=== PATIENT | female | born 1955 | race Caucasian/White ===

== ENCOUNTER → 2019-01-27 | Outpatient (CLI) | payer OTHER ==
[~2019-01-27] MED LIST: RT-ALBUTEROL SULF 2.5 MG/3 ML PRE-MIX VIAL INH ONE
== END ==
LOC: CARD 09:00
PROVIDERS: ATTEND Family Medicine
DX: R06.89 Other abnormalities of breathing (principal)
CPT/HCPCS: 93306; 94060; 94726; 94729

== ENCOUNTER → 2019-02-10 | Outpatient (CLI) | payer OTHER ==
--- NOTE | 2019-02-10 13:50 | Diagnostic Imaging Report ---
PROCEDURE: US left lower extremity venous. TECHNIQUE: Multiple real-time grayscale images were obtained over the left lower extremity in various projections. Additional duplex Doppler and color Doppler images were also obtained. INDICATION: Left leg pain and swelling for one week. FINDINGS: There is no evidence of a left lower extremity DVT. Left lower extremity deep venous system shows normal compressibility with normal response to augmentation and Valsalva. No fluid collection or mass is seen. IMPRESSION: No evidence of left lower extremity DVT. Dictated by: Dictated on workstation # [id number]
== END ==
LOC: RAD 12:47
PROVIDERS: ATTEND Family Medicine
DX: M79.662 Pain in left lower leg (principal); M79.89 Other specified soft tissue disorders

== ENCOUNTER → 2019-03-01 | Outpatient (CLI) | payer OTHER ==
[~2019-03-01] VITALS: Ht 160 cm; Wt 79.0 kg
[~2019-03-01] MED LIST changes: +CATHETER FLUSH 10 ML SYR IV PRN; +REGADENOSON 0.4 MG/5 ML SYR (LEXISCAN) IV ONE; -RT-ALBUTEROL SULF 2.5 MG/3 ML PRE-MIX VIAL INH ONE
[2019-03-01 08:55] VITALS: BP 157/79
[2019-03-01 09:02] VITALS: BP 167/66
--- NOTE | 2019-03-01 15:29 | STRESS TEST ---
DATE OF SERVICE: 03/01/2019 LEXISCAN MYOVIEW STRESS TEST REFERRING PHYSICIAN: Dr. Jignesh Gan. Baseline heart rate is 73, baseline blood pressure 157/79. Baseline EKG is sinus rhythm with no ischemic changes. In summary, the patient was injected with 10.1 mCi of technetium-99 Myoview and the resting images were obtained. Then, the patient received 0.4 mg of Lexiscan followed by 30.5 mCi of technetium-99 Myoview. Throughout the test, there were no EKG changes. The resting and stress images were reviewed and compared in the short axis, horizontal long axis, and vertical long axis views. Review of the images showed breast attenuation with mild decreased uptake at the mid anterior wall and anterolateral wall with subtle reversibility, probably due to the breast attenuation. SSS is 4, SDS 3, TID value 0.99. On the gated images, the left ventricle appeared to be in normal size with normal contractility. Calculated ejection fraction is 76%. CONCLUSION: 1. The patient tolerated Lexiscan well. 2. Breast attenuation with typical female pattern, mild decreased uptake at the mid anterior wall and anterolateral wall with subtle reversibility probably due to breast attenuation, no significant ischemia or infarction was seen. 3. Normal left ventricular size and normal contractility. Calculated ejection fraction is 76%. Job ID: [id number] DocumentID: [id number] Dictated Date: 03/01/2019 13:13:06 Divisional Storekeeper Date: 03/01/2019 15:28:51 Dictated By: WHIT CALDERON MD
== END ==
LOC: CARD 07:12
PROVIDERS: ATTEND Internal Medicine Cardiovascular Disease
DX: I73.00 Raynaud's syndrome without gangrene (principal); I10 Essential (primary) hypertension; K22.2 Esophageal obstruction
CPT/HCPCS: 78452; 93017

== ENCOUNTER → 2019-05-25 | Outpatient (CLI) | payer OTHER ==
--- NOTE | 2019-05-25 14:03 | Diagnostic Imaging Report ---
Indication: Bilateral leg swelling Noninvasive study performed with segmental pressures. On the right side, brachial pressure is 138 with PT 156 and dorsalis pedis at the ankle 145. Index was 1.13 for the posterior tibial artery and 1.05 for the dorsalis pedis on the right side. On the left side, brachial artery pressure is 137. Ankle pressure in the posterior tibial artery is 157 with dorsal pedis pressure 139. Index was 1.14 for the artery and 1.01 for dorsalis pedis. Segmental pressures do show some dampening on the left side although indices were normal. IMPRESSION: Normal ankle brachial indices. There is some dampening of the waveform on the left ankle although indices were normal. Dictated by: Dictated on workstation # [id number]
--- NOTE | 2019-05-25 14:03 | Diagnostic Imaging Report ---
INDICATION: Bilateral lower extremity swelling and poor circulation. Bilateral lower extremity arterial Doppler study performed in the routine fashion with color flow Doppler and waveform analysis. On the left side, flow was triphasic throughout with no occluded segment or focal high velocity jets. On the right side, flow was triphasic up to the upper calf and then conversed to biphasic in the dorsalis pedis and posterior tibial artery distally. No focal high velocity jet or occluded segment was seen. IMPRESSION: Bilateral lower extremity arterial Doppler study shows no evidence of arterial occlusion or significant focal stenosis. Dictated by: Dictated on workstation # [id number]
== END ==
LOC: RAD 12:24
PROVIDERS: ATTEND Family Medicine
DX: R22.41 Localized swelling, mass and lump, right lower limb (principal)
CPT/HCPCS: 93922; 93925

== ENCOUNTER → 2019-09-01 | Outpatient (CLI) | payer OTHER ==
[2019-09-01 10:56] LABS: BASOPHILS % (AUTO) 0 % (0-10); EOSINOPHILS # (AUTO) 0.2 10^3/uL (0.0-0.3); EOSINOPHILS % (AUTO) 2 % (0-10); HEMATOCRIT 42 % (35-52); HEMOGLOBIN 13.6 G/DL (11.5-16.0); LYMPHOCYTES # (AUTO) 7.1 X 10^3 (1.0-4.0); LYMPHOCYTES % (AUTO) 59 % (12-44); MEAN CORPUSCULAR HEMOGLOBIN 27 PG (25-34); MEAN CORPUSCULAR HGB CONC 32 G/DL (32-36); MEAN CORPUSCULAR VOLUME 85 FL (80-99); MEAN PLATELET VOLUME 11.3 FL (7.4-10.4); MONOCYTES # (AUTO) 0.4 X 10^3 (0.0-1.0); MONOCYTES % (AUTO) 3 % (0-12); NEUTROPHILS # (AUTO) 4.3 X 10^3 (1.8-7.8); NEUTROPHILS % (AUTO) 36 % (42-75); PLATELET COUNT 249 10^3/uL (130-400); RED CELL DISTRIBUTION WIDTH 14.5 % (10.0-14.5); WHITE BLOOD COUNT 11.9 10^3/uL (4.3-11.0)
[2019-09-01 11:22] LABS: CHLORIDE 110 MMOL/L (98-107); POTASSIUM 3.9 MMOL/L (3.6-5.0); SODIUM 140 MMOL/L (135-145)
[2019-09-01 11:23] LABS: ALBUMIN 4.2 GM/DL (3.2-4.5)
[2019-09-01 11:24] LABS: CALCIUM 8.9 MG/DL (8.5-10.1)
[2019-09-01 11:25] LABS: GLUCOSE 116 MG/DL (70-105); TRIGLYCERIDES 80 MG/DL (<150); VLDL CHOLESTEROL 16 MG/DL (5-40)
[2019-09-01 11:26] LABS: CARBON DIOXIDE 20 MMOL/L (21-32)
[2019-09-01 11:27] LABS: BILIRUBIN,TOTAL 0.5 MG/DL (0.1-1.0)
[2019-09-01 11:29] LABS: ALKALINE PHOSPHATASE 96 U/L (40-136); CREATININE SERUM 0.86 MG/DL (0.60-1.30); GFR ESTIMATED > 60
[2019-09-01 11:30] LABS: BUN/CREATININE RATIO 17; CHOLESTEROL 161 MG/DL (< 200)
[2019-09-01 11:31] LABS: HDL CHOLESTEROL 59 MG/DL (40-60)
[2019-09-01 11:32] LABS: ALANINE AMINOTRANSFERASE 13 U/L (0-55)
== END ==
LOC: LAB 10:31
PROVIDERS: ATTEND Family Medicine
DX: Z00.00 Encounter for general adult medical examination without abnormal findings (principal); R53.83 Other fatigue; M79.89 Other specified soft tissue disorders; R06.02 Shortness of breath; Z13.220 Encounter for screening for lipoid disorders
CPT/HCPCS: 36415; 80053; 80061; 83880; 85025

== ENCOUNTER → 2019-11-28 | Outpatient (CLI) | payer OTHER ==
[~2019-11-28] MED LIST changes: +HOLD METFORMIN - RECEIVED CONTRAST 20 ML VIAL IV SCH; +IOHEXOL 350 MG/ML 100 ML (OMNIPAQUE 350) VIAL IV ONE; +NS 100 ML (IVPB) BAG IV ONE; -REGADENOSON 0.4 MG/5 ML SYR (LEXISCAN) IV ONE
[2019-11-28 09:49] LABS: BUN/CREATININE RATIO 12; CALCIUM 8.7 MG/DL (8.5-10.1); CARBON DIOXIDE 22 MMOL/L (21-32); CHLORIDE 107 MMOL/L (98-107); CREATININE SERUM 0.85 MG/DL (0.60-1.30); GFR ESTIMATED > 60; GLUCOSE 103 MG/DL (70-105); POTASSIUM 3.9 MMOL/L (3.6-5.0); SODIUM 140 MMOL/L (135-145)
--- NOTE | 2019-11-28 10:30 | Diagnostic Imaging Report ---
PROCEDURE: CT abdomen and pelvis with contrast. TECHNIQUE: Multiple contiguous axial images were obtained through the abdomen and pelvis after administration of intravenous contrast. Auto Exposure Controls were utilized during the CT exam to meet ALARA standards for radiation dose reduction. All CT scans use one or more of the following dose optimizing techniques: automated exposure control, MA and/or KvP adjustment based on patient size and exam type or iterative reconstruction. INDICATION: Abdominal mass, distention COMPARISON: None available FINDINGS: Visualized lung bases are clear. Small hiatal hernia. Cholecystectomy. The liver, spleen, adrenal glands, and pancreas are unremarkable. The bilateral kidneys and ureters are unremarkable. No aneurysmal dilatation of the abdominal aorta. Tiny locule of gas within the urinary bladder. Otherwise, the urinary bladder is unremarkable. The uterus is not visualized, likely surgically absent. No abnormal adnexal mass lesion. Mild colonic diverticulosis without CT evidence of diverticulitis. No bowel obstruction or pneumatosis. No significant adenopathy, free air, or free fluid within the abdomen or pelvis. Postsurgical changes within the lumbosacral spine. No acute osseous abnormality. IMPRESSION: Small locule of gas within urinary bladder. This likely relates to recent instrumentation, though gas forming organism could be an additional consideration. Recommend clinical correlation. Additionally, correlation with urinary analysis may be indicated if there is concern for infection. Mild colonic diverticulosis without CT evidence of diverticulitis. Hysterectomy and cholecystectomy. Additional findings as above. Dictated by: Dictated on workstation # [id number]
== END ==
LOC: RAD 10:15
PROVIDERS: ATTEND Family Medicine
DX: K57.30 Diverticulosis of large intestine without perforation or abscess without bleeding (principal); I87.8 Other specified disorders of veins; Z90.710 Acquired absence of both cervix and uterus; Z90.49 Acquired absence of other specified parts of digestive tract
CPT/HCPCS: 36415; 74177; 80048

== ENCOUNTER 2020-09-06 15:19 | Outpatient (RCR) | payer OTHER | END 2020-12-05 | disposition home or self-care (01) | PROVIDERS: ATTEND Otolaryngology Pediatric Otolaryngology | DX: J38.01 Paralysis of vocal cords and larynx, unilateral (principal) ==

== ENCOUNTER → 2020-11-18 | Outpatient (CLI) | payer OTHER | LOC: RAD 10:15 | PROVIDERS: ATTEND Family Medicine | DX: Z12.31 Encounter for screening mammogram for malignant neoplasm of breast (principal) | CPT/HCPCS: 77063; 77067 ==

== ENCOUNTER 2021-04-09 09:20 | Outpatient (RCR) | payer OTHER | END 2021-04-14 | disposition home or self-care (01) | LOC: ONC 09:20 | PROVIDERS: ATTEND Internal Medicine Hematology & Oncology | DX: D72.829 Elevated white blood cell count, unspecified (principal); I10 Essential (primary) hypertension; E66.9 Obesity, unspecified | CPT/HCPCS: 88184; 88185; G0463; 36415; 99214 ==

== ENCOUNTER 2021-07-09 08:56 | Outpatient (RCR) | payer OTHER ==
[2021-07-09 09:18] LABS: BASOPHILS # (AUTO) 0.1 10^3/uL (0.0-0.1); BASOPHILS % (AUTO) 0 % (0-10); EOSINOPHILS # (AUTO) 0.3 10^3/uL (0.0-0.3); EOSINOPHILS % (AUTO) 1 % (0-10); HEMATOCRIT 41 % (35-52); LYMPHOCYTES # (AUTO) 35.6 10^3/uL (1.0-4.0); LYMPHOCYTES % (AUTO) 84 % (12-44); MEAN CORPUSCULAR HEMOGLOBIN 29 pg (25-34); MEAN CORPUSCULAR HGB CONC 32 g/dL (32-36); MEAN CORPUSCULAR VOLUME 89 fL (80-99); MEAN PLATELET VOLUME 11.6 fL (9.0-12.2); MONOCYTES # (AUTO) 1.6 10^3/uL (0.0-1.0); MONOCYTES % (AUTO) 4 % (0-12); NEUTROPHILS # (AUTO) 4.7 10^3/uL (1.8-7.8); NEUTROPHILS % (AUTO) 11 % (42-75); PLATELET COUNT 195 10^3/uL (130-400)
[2021-07-09 09:22] LABS: ALBUMIN 4.1 GM/DL (3.2-4.5); POTASSIUM 4.4 MMOL/L (3.6-5.0)
[2021-07-09 09:23] LABS: CALCIUM 8.9 MG/DL (8.5-10.1); WHITE BLOOD COUNT 42.4 10^3/uL (4.3-11.0)
[2021-07-09 09:25] LABS: TOTAL PROTEIN 6.6 GM/DL (6.4-8.2)
[2021-07-09 09:26] LABS: BILIRUBIN,TOTAL 0.5 MG/DL (0.1-1.0)
[2021-07-09 09:28] LABS: CREATININE SERUM 0.9 MG/DL (0.60-1.30)
== END 2021-07-15 | disposition home or self-care (01) ==
LOC: ONC 08:56
PROVIDERS: ATTEND Internal Medicine Hematology & Oncology
DX: C91.10 Chronic lymphocytic leukemia of B-cell type not having achieved remission (principal); I10 Essential (primary) hypertension; E66.9 Obesity, unspecified
CPT/HCPCS: 80053; 85025; G0463; 36415; 99213

== ENCOUNTER 2021-10-07 12:53 | Outpatient (RCR) | payer OTHER ==
[2021-10-07 13:17] LABS: BASOPHILS # (AUTO) 0.2 10^3/uL (0.0-0.1); BASOPHILS % (AUTO) 0 % (0-10); EOSINOPHILS # (AUTO) 0.2 10^3/uL (0.0-0.3); EOSINOPHILS % (AUTO) 0 % (0-10); HEMATOCRIT 42 % (35-52); HEMOGLOBIN 13.4 g/dL (11.5-16.0); LYMPHOCYTES # (AUTO) 43.7 10^3/uL (1.0-4.0); LYMPHOCYTES % (AUTO) 82 % (12-44); MEAN CORPUSCULAR HEMOGLOBIN 28 pg (25-34); MEAN CORPUSCULAR HGB CONC 32 g/dL (32-36); MEAN CORPUSCULAR VOLUME 88 fL (80-99); MEAN PLATELET VOLUME 11.1 fL (9.0-12.2); MONOCYTES # (AUTO) 2.1 10^3/uL (0.0-1.0); MONOCYTES % (AUTO) 4 % (0-12); NEUTROPHILS # (AUTO) 7.2 10^3/uL (1.8-7.8); NEUTROPHILS % (AUTO) 14 % (42-75); PLATELET COUNT 226 10^3/uL (130-400)
[2021-10-07 13:21] LABS: WHITE BLOOD COUNT 53.6 10^3/uL (4.3-11.0)
[2021-10-07 13:38] LABS: ALBUMIN 4.4 GM/DL (3.2-4.5); BILIRUBIN,TOTAL 0.7 MG/DL (0.1-1.0); CALCIUM 9.4 MG/DL (8.5-10.1); CREATININE SERUM 0.96 MG/DL (0.60-1.30); POTASSIUM 5.5 MMOL/L (3.6-5.0)
== END 2021-10-15 | disposition home or self-care (01) ==
LOC: ONC 12:53
PROVIDERS: ATTEND Internal Medicine Hematology & Oncology
DX: C91.10 Chronic lymphocytic leukemia of B-cell type not having achieved remission (principal); I10 Essential (primary) hypertension; E66.9 Obesity, unspecified
CPT/HCPCS: 80053; 85025; G0463; 36415; 99213

== ENCOUNTER 2022-01-06 13:02 | Outpatient (RCR) | payer OTHER ==
[2022-01-06 13:28] LABS: BASOPHILS # (AUTO) 0.1 10^3/uL (0.0-0.1); BASOPHILS % (AUTO) 0 % (0-10); EOSINOPHILS # (AUTO) 0.3 10^3/uL (0.0-0.3); EOSINOPHILS % (AUTO) 0 % (0-10); HEMATOCRIT 46 % (35-52); HEMOGLOBIN 14.1 g/dL (11.5-16.0); LYMPHOCYTES # (AUTO) 66.4 10^3/uL (1.0-4.0); LYMPHOCYTES % (AUTO) 88 % (12-44); MEAN CORPUSCULAR HEMOGLOBIN 29 pg (25-34); MEAN CORPUSCULAR HGB CONC 31 g/dL (32-36); MEAN CORPUSCULAR VOLUME 92 fL (80-99); MEAN PLATELET VOLUME 11.4 fL (9.0-12.2); MONOCYTES # (AUTO) 1.6 10^3/uL (0.0-1.0); MONOCYTES % (AUTO) 2 % (0-12); NEUTROPHILS # (AUTO) 6.8 10^3/uL (1.8-7.8); NEUTROPHILS % (AUTO) 9 % (42-75); PLATELET COUNT 250 10^3/uL (130-400)
[2022-01-06 13:31] LABS: WHITE BLOOD COUNT 75.3 10^3/uL (4.3-11.0)
[2022-01-06 13:50] LABS: ALBUMIN 4.3 GM/DL (3.2-4.5); BILIRUBIN,TOTAL 0.6 MG/DL (0.1-1.0); CALCIUM 9.3 MG/DL (8.5-10.1); CREATININE SERUM 0.89 MG/DL (0.60-1.30); POTASSIUM 4.8 MMOL/L (3.6-5.0); TOTAL PROTEIN 6.9 GM/DL (6.4-8.2)
== END 2022-01-14 | disposition home or self-care (01) ==
LOC: ONC 13:02
PROVIDERS: ATTEND Internal Medicine Hematology & Oncology
DX: C91.10 Chronic lymphocytic leukemia of B-cell type not having achieved remission (principal); I10 Essential (primary) hypertension; E66.9 Obesity, unspecified
CPT/HCPCS: 80053; 85025; G0463; 36415; 99213

== ENCOUNTER → 2022-01-27 | Outpatient (CLI) | payer OTHER ==
--- NOTE | 2022-01-27 13:25 | Diagnostic Imaging Report ---
EXAMINATION: US Lower Extremity Venous Duplex Left. TECHNIQUE: Multiple real-time grayscale images were obtained over the left lower extremity in various projections. Additional spectral analysis and color Doppler duplex images were also obtained. HISTORY: Left lower extremity edema. Fall. COMPARISON: None available. FINDINGS: The left common femoral vein, deep femoral vein, superficial femoral vein and popliteal vein are patent with normal cardenas scale and doppler appearance. There is normal respiratory variation and augmentation. IMPRESSION: 1. No DVT of the left lower extremity. Dictated by: Dictated on workstation # [id number]
== END ==
LOC: RAD 12:30
PROVIDERS: ATTEND Family Medicine Sports Medicine
DX: R60.0 Localized edema (principal); W19.XXXA Unspecified fall, initial encounter

== ENCOUNTER 2022-04-06 09:10 | Outpatient (RCR) | payer OTHER ==
[2022-03-31 13:44] LABS: BASOPHILS # (AUTO) 0.4 10^3/uL (0.0-0.1); BASOPHILS % (AUTO) 1 % (0-10); EOSINOPHILS # (AUTO) 0.4 10^3/uL (0.0-0.3); EOSINOPHILS % (AUTO) 1 % (0-10); HEMATOCRIT 42 % (35-52); HEMOGLOBIN 13.1 g/dL (11.5-16.0); LYMPHOCYTES # (AUTO) 70.3 10^3/uL (1.0-4.0); LYMPHOCYTES % (AUTO) 88 % (12-44); MEAN CORPUSCULAR HEMOGLOBIN 28 pg (25-34); MEAN CORPUSCULAR HGB CONC 31 g/dL (32-36); MEAN CORPUSCULAR VOLUME 90 fL (80-99); MEAN PLATELET VOLUME 11.7 fL (9.0-12.2); MONOCYTES # (AUTO) 2.3 10^3/uL (0.0-1.0); MONOCYTES % (AUTO) 3 % (0-12); NEUTROPHILS # (AUTO) 6.2 10^3/uL (1.8-7.8); NEUTROPHILS % (AUTO) 8 % (42-75); PLATELET COUNT 214 10^3/uL (130-400)
[2022-03-31 13:57] LABS: WHITE BLOOD COUNT 79.8 10^3/uL (4.3-11.0)
[2022-03-31 14:06] LABS: ALBUMIN 4.2 GM/DL (3.2-4.5); POTASSIUM 5.6 MMOL/L (3.6-5.0)
[2022-03-31 14:07] LABS: CALCIUM 8.7 MG/DL (8.5-10.1)
[2022-03-31 14:09] LABS: TOTAL PROTEIN 6.8 GM/DL (6.4-8.2)
[2022-03-31 14:10] LABS: BILIRUBIN,TOTAL 0.6 MG/DL (0.1-1.0)
[2022-03-31 14:12] LABS: CREATININE SERUM 0.89 MG/DL (0.60-1.30)
[2022-04-06 09:21] LABS: BASOPHILS # (AUTO) 0.3 10^3/uL (0.0-0.1); BASOPHILS % (AUTO) 0 % (0-10); EOSINOPHILS # (AUTO) 0.4 10^3/uL (0.0-0.3); EOSINOPHILS % (AUTO) 1 % (0-10); HEMATOCRIT 42 % (35-52); HEMOGLOBIN 13.3 g/dL (11.5-16.0); LYMPHOCYTES # (AUTO) 70.4 10^3/uL (1.0-4.0); LYMPHOCYTES % (AUTO) 88 % (12-44); MEAN CORPUSCULAR HEMOGLOBIN 29 pg (25-34); MEAN CORPUSCULAR HGB CONC 32 g/dL (32-36); MEAN CORPUSCULAR VOLUME 90 fL (80-99); MEAN PLATELET VOLUME 11.5 fL (9.0-12.2); MONOCYTES # (AUTO) 2.4 10^3/uL (0.0-1.0); MONOCYTES % (AUTO) 3 % (0-12); NEUTROPHILS # (AUTO) 6.4 10^3/uL (1.8-7.8); NEUTROPHILS % (AUTO) 8 % (42-75); PLATELET COUNT 227 10^3/uL (130-400)
[2022-04-06 09:38] LABS: ALBUMIN 4.1 GM/DL (3.2-4.5); BILIRUBIN,TOTAL 0.4 MG/DL (0.1-1.0); CREATININE SERUM 0.85 MG/DL (0.60-1.30); POTASSIUM 5.5 MMOL/L (3.6-5.0); TOTAL PROTEIN 6.8 GM/DL (6.4-8.2)
[2022-04-06 09:51] LABS: WHITE BLOOD COUNT 80.1 10^3/uL (4.3-11.0)
== END 2022-04-14 | disposition home or self-care (01) ==
LOC: ONC 09:10
PROVIDERS: ATTEND Internal Medicine Hematology & Oncology
DX: C91.10 Chronic lymphocytic leukemia of B-cell type not having achieved remission (principal); I10 Essential (primary) hypertension; E66.9 Obesity, unspecified
CPT/HCPCS: 36415; 80053; 85025

== ENCOUNTER 2022-06-30 12:56 | Outpatient (RCR) | payer OTHER ==
[2022-06-30 13:19] LABS: BASOPHILS # (AUTO) 0.2 10^3/uL (0.0-0.1); BASOPHILS % (AUTO) 0 % (0-10); EOSINOPHILS # (AUTO) 0.2 10^3/uL (0.0-0.3); EOSINOPHILS % (AUTO) 0 % (0-10); HEMATOCRIT 38 % (35-52); HEMOGLOBIN 12.1 g/dL (11.5-16.0); LYMPHOCYTES # (AUTO) 65.7 10^3/uL (1.0-4.0); LYMPHOCYTES % (AUTO) 90 % (12-44); MEAN CORPUSCULAR HEMOGLOBIN 29 pg (25-34); MEAN CORPUSCULAR HGB CONC 32 g/dL (32-36); MEAN CORPUSCULAR VOLUME 90 fL (80-99); MEAN PLATELET VOLUME 11.9 fL (9.0-12.2); MONOCYTES # (AUTO) 1.7 10^3/uL (0.0-1.0); MONOCYTES % (AUTO) 2 % (0-12); NEUTROPHILS # (AUTO) 4.9 10^3/uL (1.8-7.8); NEUTROPHILS % (AUTO) 7 % (42-75); PLATELET COUNT 186 10^3/uL (130-400)
[2022-06-30 13:21] LABS: WHITE BLOOD COUNT 72.9 10^3/uL (4.3-11.0)
== END 2022-07-15 | disposition home or self-care (01) ==
LOC: ONC 12:56
PROVIDERS: ATTEND Internal Medicine Hematology & Oncology
DX: C91.10 Chronic lymphocytic leukemia of B-cell type not having achieved remission (principal); I10 Essential (primary) hypertension; E66.9 Obesity, unspecified
CPT/HCPCS: 36415; 85025

== ENCOUNTER 2022-08-12 05:48 | Outpatient (CLI) | payer OTHER ==
[~2022-08-12] VITALS: Ht 162.6 cm; Wt 84.1 kg
[2022-08-12] MEDS ORDERED: FAMO-119 PO (12:15)
[2022-08-12] MEDS ORDERED: MTP25TSR PO (12:15)
[2022-08-12] MEDS ORDERED: BUPR300T43 PO (12:15)
[2022-08-12] MEDS ORDERED: MELO15TA39 PO (12:15)
[2022-08-12] MEDS ORDERED: PANT40TA52 PO (12:15)
[2022-08-12] MEDS ORDERED: NIFE60TA2 PO (12:15)
== END 2022-08-12 13:20 | disposition home or self-care (01) ==
LOC: PREOP 05:48
PROVIDERS: ATTEND Specialist
DX: Z01.818 Encounter for other preprocedural examination (principal)

== ENCOUNTER 2022-08-21 08:23 | Day surgery (SDC) | payer OTHER ==
[~2022-08-21] VITALS: Ht 162.1 cm; Wt 84.1 kg
[~2022-08-21 08:23] MED LIST changes: +BUPR300T43 PO; -CATHETER FLUSH 10 ML SYR IV PRN; +FAMO-119 PO; -HOLD METFORMIN - RECEIVED CONTRAST 20 ML VIAL IV SCH; -IOHEXOL 350 MG/ML 100 ML (OMNIPAQUE 350) VIAL IV ONE; +MELO15TA39 PO; +MTP25TSR PO; +NIFE60TA2 PO; -NS 100 ML (IVPB) BAG IV ONE; +PANT40TA52 PO
[2022-08-21] MEDS ORDERED: TIMOLOL 0.5% (CATARACTS) 0.3 ML BTL OU PRN (08:30)
[2022-08-21] MEDS ORDERED: POVIDONE (BETADINE) OPHTH SOLN 5% 30 ML OP ONE (08:30)
[2022-08-21] MEDS ORDERED: MOXIFLOXACIN OPHTH SOLN 5 MG/ML 0.3 ML SYRINGE OP ONE (08:30)
[2022-08-21] MEDS ORDERED: MIDAZOLAM 2 MG/2 ML (VERSED) VIAL ONE (08:34)
[2022-08-21] MEDS: TETRACAINE 0.5% OPHTH SOLN 4 ML BTL (SINGLE DOSE ONLY) OU PRN ×4 (08:38→08:59)
[2022-08-21] MEDS: TROPICAMIDE 1% OPH SOLN (MYDRIACYL) 15 ML BTL OP SCH ×3 (08:45→09:00)
[2022-08-21] MEDS: PHENYLEPHRINE 10% OPHTH (NEO-SYN) 5 ML BTL OU SCH ×3 (08:45→08:59)
[2022-08-21 08:49] VITALS: BP 161/71
--- NOTE | 2022-08-21 09:05 | Ophthalmologist Pre-Op Note ---
Pre-Operative Progress Note H&P Reviewed The H&P was reviewed, patient examined and no changes noted. Date H&P Reviewed: Aug 21, 2022 Time H&P Reviewed: 09:05 Pre-Op Dx Cataract, Left Eye CHRISTOS HACKETT MD Aug 21, 2022 09:05
--- NOTE | 2022-08-21 09:27 | Ophthalmology Operative Report ---
Cataract removal/placement IOL PREOPERATIVE DIAGNOSIS: Cataract Left Eye POSTOPERATIVE DIAGNOSIS: Cataract Left Eye PROCEDURE: Cataract removal and placement of posterior chamber implant, left eye SURGEON: Kit Hackett ANESTHESIA: Topical with sedation COMPLICATIONS: None ESTIMATED BLOOD LOSS: Minimal DESCRIPTION OF PROCEDURE: After proper informed consent was obtained, the patient, a 67 female, was taken to the Operating Room and the left eye was anesthetized with tetracaine. The left eye was then prepped and draped in the usual manner. A wire lid speculum was placed. A paracentesis was made at the left hand position. Preservative free lidocaine was injected into the anterior chamber followed by viscoelastic. A clear corneal incision was made in the temporal position. A capsulorrhexis was preformed and the central nuclear and cortical material were removed. The posterior capsule was polished and an Ernst 20.0 AU00T0 was placed into the capsular bag. The residual viscoelastic was aspirated and balanced saline solution was injected into the anterior chamber. Moxifloxacin was injected into the anterior chamber. The wound was checked and found to be water tight. The patient tolerated the procedure well without complications. KIT HACKETT MD Aug 21, 2022 09:27
--- NOTE | 2022-08-21 14:58 | Anesthesia-General Post-Op ---
MAC Patient Condition Mental Status/LOC: Same as Preop Cardiovascular: Satisfactory Nausea/Vomiting: Absent Respiratory: Satisfactory Pain: Controlled Complications: Absent Post Op Complications Complications None Follow Up Care/Instructions Patient Instructions None needed. Anesthesiology Discharge Order Discharge Order Patient was doing well after the procedure with no complaints, stable vital signs, no apparent adverse anesthesia problems. No complications reported per nursing. LIZANDRO CLEMENT DO Aug 21, 2022 14:58
== END 2022-08-21 09:36 | disposition home or self-care (01) ==
LOC: SDC 08:23
PROVIDERS: ATTEND Specialist
DX: H25.9 Unspecified age-related cataract (principal); C95.10 Chronic leukemia of unspecified cell type not having achieved remission
CPT/HCPCS: 66984; V2632

== ENCOUNTER 2022-09-02 05:33 | Outpatient (CLI) | payer OTHER | END 2022-09-02 12:20 | LOC: PREOP 05:33 | PROVIDERS: ATTEND Specialist | DX: Z01.818 Encounter for other preprocedural examination (principal) ==

== ENCOUNTER → 2022-09-17 | Outpatient (CLI) | payer OTHER ==
[2022-09-17 10:43] LABS: BASOPHILS # (AUTO) 0.3 10^3/uL (0.0-0.1); BASOPHILS % (AUTO) 0 % (0-10); EOSINOPHILS # (AUTO) 0.3 10^3/uL (0.0-0.3); EOSINOPHILS % (AUTO) 0 % (0-10); HEMATOCRIT 42 % (35-52); HEMOGLOBIN 13.1 g/dL (11.5-16.0); LYMPHOCYTES # (AUTO) 85.4 10^3/uL (1.0-4.0); LYMPHOCYTES % (AUTO) 90 % (12-44); MEAN CORPUSCULAR HEMOGLOBIN 28 pg (25-34); MEAN CORPUSCULAR HGB CONC 31 g/dL (32-36); MEAN CORPUSCULAR VOLUME 90 fL (80-99); MEAN PLATELET VOLUME 11.4 fL (9.0-12.2); MONOCYTES % (AUTO) 2 % (0-12); NEUTROPHILS # (AUTO) 6.7 10^3/uL (1.8-7.8); NEUTROPHILS % (AUTO) 7 % (42-75); PLATELET COUNT 252 10^3/uL (130-400)
[2022-09-17 10:49] LABS: ALBUMIN 4.3 GM/DL (3.2-4.5); POTASSIUM 4.6 MMOL/L (3.6-5.0)
[2022-09-17 10:50] LABS: CALCIUM 9.2 MG/DL (8.5-10.1)
[2022-09-17 10:52] LABS: TOTAL PROTEIN 7.3 GM/DL (6.4-8.2)
[2022-09-17 10:53] LABS: BILIRUBIN,TOTAL 0.5 MG/DL (0.1-1.0)
[2022-09-17 10:55] LABS: CREATININE SERUM 0.93 MG/DL (0.60-1.30)
[2022-09-17 11:20] LABS: ERYTHROCYTE SEDIMENTATION RATE 8 MM/HR (0-30)
[2022-09-17 12:04] LABS: EOSINOPHILS % (MANUAL) 1 %; LYMPHOCYTES % (MANUAL) 87 %; MONOCYTES % (MANUAL) 1 %; NEUTROPHILS % (MANUAL) 7 %; REACTIVE LYMPHOCYTES 4 %
[2022-09-17 12:05] LABS: RBC MORPH NORMAL
== END ==
LOC: WOUNDCARE 09:23
PROVIDERS: ATTEND Family Medicine
DX: M20.42 Other hammer toe(s) (acquired), left foot (principal); L97.522 Non-pressure chronic ulcer of other part of left foot with fat layer exposed; G90.09 Other idiopathic peripheral autonomic neuropathy; C95.10 Chronic leukemia of unspecified cell type not having achieved remission; E66.01 Morbid (severe) obesity due to excess calories; L03.032 Cellulitis of left toe; Z68.33 Body mass index [BMI] 33.0-33.9, adult
CPT/HCPCS: 11042; 80053; 85007; 85027; 85652; 86141; A6197; G0463; 36415

== ENCOUNTER → 2022-09-23 | Outpatient (CLI) | payer OTHER | LOC: WOUNDCARE 13:27 | PROVIDERS: ATTEND Family Medicine | DX: I96 Gangrene, not elsewhere classified (principal); L97.522 Non-pressure chronic ulcer of other part of left foot with fat layer exposed; M20.42 Other hammer toe(s) (acquired), left foot; G90.09 Other idiopathic peripheral autonomic neuropathy; C95.10 Chronic leukemia of unspecified cell type not having achieved remission; E66.01 Morbid (severe) obesity due to excess calories; L03.032 Cellulitis of left toe; B95.62 Methicillin resistant Staphylococcus aureus infection as the cause of diseases classified elsewhere; Z68.33 Body mass index [BMI] 33.0-33.9, adult | CPT/HCPCS: 11042; G0463 ==

== ENCOUNTER 2022-09-29 12:51 | Outpatient (RCR) | payer OTHER | END 2022-10-15 | disposition home or self-care (01) | LOC: ONC 12:51 | PROVIDERS: ATTEND Internal Medicine Hematology & Oncology | DX: C91.10 Chronic lymphocytic leukemia of B-cell type not having achieved remission (principal); I10 Essential (primary) hypertension; E66.9 Obesity, unspecified | CPT/HCPCS: 99214 ==

== ENCOUNTER → 2022-09-30 | Outpatient (CLI) | payer OTHER | LOC: WOUNDCARE 12:59 | PROVIDERS: ATTEND Family Medicine | DX: I96 Gangrene, not elsewhere classified (principal); L97.522 Non-pressure chronic ulcer of other part of left foot with fat layer exposed; M20.42 Other hammer toe(s) (acquired), left foot; G90.09 Other idiopathic peripheral autonomic neuropathy; C95.10 Chronic leukemia of unspecified cell type not having achieved remission; E66.01 Morbid (severe) obesity due to excess calories; Z68.33 Body mass index [BMI] 33.0-33.9, adult | CPT/HCPCS: 11042; G0463 ==

== ENCOUNTER → 2022-10-02 | Outpatient (CLI) | payer OTHER ==
[~2022-10-02] MED LIST changes: +GADOTERATE 0.5 MMOL/ML (CLARISCAN) 20 ML VIAL IV ONE
--- NOTE | 2022-10-02 12:07 | Diagnostic Imaging Report ---
PROCEDURE: MRI left lower extremity with and without contrast. TECHNIQUE: Multiplanar, multisequence pre and post contrast-enhanced MRI of the left lower extremity was accomplished. INDICATION: Cellulitis of the left toe COMPARISON: None FINDINGS: No acute fracture is seen in the imaged left foot. There are claw toe deformities of the 3rd through 5th toes and hammertoe deformity of the 2nd toe. There is marked enhancement and bone marrow edema in the 2nd toe distal phalanx with T1-weighted marrow replacement. The middle phalanx demonstrates mild edema and enhancement without significant marrow replacement seen. Alignment appears normal. There are mild degenerative changes in the interphalangeal joints. No joint effusion is seen. Visible flexor and extensor tendons appear intact. There is dorsal subcutaneous edema and enhancement. There is marked soft tissue edema and enhancement about the 2nd toe. There appears to be an ulceration distally. No rim-enhancing fluid collection is seen. IMPRESSION: 1. Osteomyelitis of the left 2nd toe distal phalanx. Osteitis without osteomyelitis of the middle phalanx. 2. Soft tissue infection of the left 2nd toe with no rim-enhancing fluid collection seen. Dictated by: Dictated on workstation # [id number]
== END ==
LOC: RAD 09:49
PROVIDERS: ATTEND Family Medicine
DX: M86.8X8 Other osteomyelitis, other site (principal); L03.032 Cellulitis of left toe; L97.522 Non-pressure chronic ulcer of other part of left foot with fat layer exposed; M20.42 Other hammer toe(s) (acquired), left foot; G90.09 Other idiopathic peripheral autonomic neuropathy; C95.10 Chronic leukemia of unspecified cell type not having achieved remission; E66.01 Morbid (severe) obesity due to excess calories; Z68.33 Body mass index [BMI] 33.0-33.9, adult
CPT/HCPCS: 73720

== ENCOUNTER → 2022-10-07 | Outpatient (CLI) | payer OTHER ==
[~2022-10-07] MED LIST changes: -GADOTERATE 0.5 MMOL/ML (CLARISCAN) 20 ML VIAL IV ONE
== END ==
LOC: WOUNDCARE 13:00
PROVIDERS: ATTEND Family Medicine
DX: I96 Gangrene, not elsewhere classified (principal); L97.522 Non-pressure chronic ulcer of other part of left foot with fat layer exposed; M20.42 Other hammer toe(s) (acquired), left foot; G90.09 Other idiopathic peripheral autonomic neuropathy; C95.10 Chronic leukemia of unspecified cell type not having achieved remission; E66.01 Morbid (severe) obesity due to excess calories; M86.172 Other acute osteomyelitis, left ankle and foot; B95.62 Methicillin resistant Staphylococcus aureus infection as the cause of diseases classified elsewhere; Z68.33 Body mass index [BMI] 33.0-33.9, adult
CPT/HCPCS: 99213

== ENCOUNTER 2022-10-27 05:28 | Outpatient (CLI) | payer OTHER ==
[~2022-10-27] VITALS: Ht 162.6 cm; Wt 86.4 kg
[2022-10-27] MEDS ORDERED: VALS40TA9 PO (11:24)
[2022-10-27] MEDS ORDERED: MULT-974 PO (11:24)
[2022-10-27] MEDS ORDERED: ASPI-999 PO (11:24)
[2022-10-27] MEDS ORDERED: CHOL100L MC (11:24)
[2022-10-27] MEDS ORDERED: CYAN100T37 PO (11:24)
[2022-10-27] MEDS ORDERED: LOTE5DRO3 OP (11:24)
[2022-10-29] MEDS ORDERED: ACHD5005 PO (15:33)
== END 2022-10-27 12:58 | disposition home or self-care (01) ==
LOC: PREOP 05:28
PROVIDERS: ATTEND Surgery
DX: Z01.818 Encounter for other preprocedural examination (principal)

== ENCOUNTER 2022-10-29 10:38 | Day surgery (SDC) | payer OTHER ==
[~2022-10-29] VITALS: Ht 162.6 cm; Wt 86.4 kg
[2022-10-29] VITALS (8 sets, daily range): BP systolic 109–171; BP diastolic 48–79
[~2022-10-29 10:38] MED LIST changes: +ASPI-999 PO; +CHOL100L MC; +CYAN100T37 PO; +LOTE5DRO3 OP; +MULT-974 PO; +VALS40TA9 PO
[2022-10-29] MEDS ORDERED: ceFAZolin INJECTION 2,000 MG in NS (IVPB) 50 ML 50 ML IV ONE (11:15)
[2022-10-29] MEDS ORDERED: LACTATED RINGERS 1,000 ML 1,000 ML IV PRN (11:15)
--- NOTE | 2022-10-29 11:27 | Progress Note-Pre Operative ---
Pre-Operative Progress Note Date H&P Reviewed: Oct 29, 2022 Time H&P Reviewed: 11:27 History & Physical: H&P Reviewed, Patient Examed, No changes noted Pre-Operative Diagnosis: left second toe osteomyelitis MISHA CARTER DO Oct 29, 2022 11:27
[2022-10-29] MEDS ORDERED: LIDOCAINE/EPI 1%-1:200,000 (XYLOCAINE) 30 ML VIAL ONE (13:52)
[2022-10-29] MEDS ORDERED: MIDAZOLAM INJ 2 MG/2 ML VIAL ONE (14:30)
[2022-10-29] MEDS ORDERED: ONDANSETRON INJECTION 4 MG/2 ML (SDV) IV ONE (14:30)
[2022-10-29] MEDS ORDERED: FAMOTIDINE INJ 20MG/2ML VIAL IV ONE (14:30)
[2022-10-29] MEDS ORDERED: ACHD5005 PO (15:33)
--- NOTE | 2022-10-29 15:37 | Anesthesia-General Post-Op ---
MAC Patient Condition Mental Status/LOC: Same as Preop Cardiovascular: Satisfactory Nausea/Vomiting: Absent Respiratory: Satisfactory Pain: Controlled Complications: Absent Post Op Complications Complications None Follow Up Care/Instructions Patient Instructions None needed. Anesthesiology Discharge Order Discharge Order Patient is doing well, no complaints, stable vital signs, no apparent adverse anesthesia problems. No complications reported per nursing. DEANA FRANKLIN LEATHER CARVER Oct 29, 2022 15:37
--- NOTE | 2022-10-29 15:37 | Discharge Inst-Simple/Standard ---
Discharge Inst-Standard Discharge Medications New, Converted or Re-Newed RX: Transmitted to Pharmacy Patient Instructions/Follow Up Plan of Care/Instructions/FU: 2 weeks Millie (suture removal) Activity as Tolerated: No Discharge Diet: Regular Diet Other Inst to Patient Follow up Appt: Make appointment for 2 week. Instructions: No lifting greater than 10 pounds. No strenuous activity. May shower in 24 hours, no tub bath or soaking. Use incentive spirometer at home as directed. No Smoking Skin/Wound Care: Keep clean and dry. Change dressings daily and as needed. Symptoms to Report: Appetite Changes, Extremity Discoloration, Numbness/Tingling, Swelling Increase d, Bleeding Excessive, Eyesight Changes, Pain Increased, Urine Color Change, Constipation(Persistent), Fever over 101 degree F, Pain/Pressure in chest, Urinating Difficulty, Cough Up/Vomit Blood, Heart Beat Irreg/Pounding, Pain/Pressure in jaw, Vaginal Bleeding Increase, Cramps in feet or legs, Lightheadedness, Pain/Pressure in shoulder, Diarrhea(Persistent), Memory Changes Suddenly, Questions/Concerns, Weight gain consecutive days, Dizziness/Fainting, Nausea/Vomiting, Shortness of Breath, Weight gain over 2 pounds If questions or concerns contact your physician Or seek help at emergency department. MISHA CARTER DO Oct 29, 2022 15:37
--- NOTE | 2022-10-29 15:38 | Progress Note-Post Operative ---
Post-Operative Progess Note Surgeon (s)/Energy Sales Broker (s) Surgeon MISHA CARTER DO Energy Sales Broker: na Pre-Operative Diagnosis left second toe osteomyelitis Post-Operative Diagnosis same Procedure & Operative Findings Date of Procedure 10/29/22 Procedure Performed/Findings left ankle block, left second toe amputation Anesthesia Type mac c block Estimated Blood Loss Estimated blood loss (mL): minimal Specimens/Packing Specimens Removed left 2nd toe MISHA CARTER DO Oct 29, 2022 15:38
[2022-10-29] MEDS ORDERED: morphine INJ 10 MG/ML 1ML (SYR OR VIAL) IVP ONE (15:45)
[2022-10-29] MEDS ORDERED: ONDANSETRON INJECTION 4 MG/2 ML (SDV) IVP PRN (15:45)
--- NOTE | 2022-10-30 00:29 | OPERATIVE REPORT ---
DATE OF SERVICE: 10/29/2022 PREOPERATIVE DIAGNOSIS: Osteomyelitis of the left second toe. POSTOPERATIVE DIAGNOSIS: Osteomyelitis of the left second toe. PROCEDURE: Left ankle block, left second toe amputation. SURGEON: Misha Pinto DO ANESTHESIA: MAC, left ankle block. ESTIMATED BLOOD LOSS: Minimal. COMPLICATIONS: None. INDICATIONS: The patient is a 67-year-old female with a left second toe with distal chronic wound that found to have osteomyelitis of the distal toe. She has been recommended to have this removed. She understands risks and benefits of procedure and wished to proceed. Consent was signed in chart. DESCRIPTION OF PROCEDURE: The patient was taken to the operating suite. She was prepped and draped in sterile fashion. Timeout was performed. Left ankle block was performed going medial and lateral malleolus, posterior to it and injecting local anesthetic and also fanning it over the dorsal aspect of the foot. Once the anesthetic effect took place, a #15 blade scalpel was used to make an incision around the base of the left second toe. Cautery was used to dissect down through subcutaneous tissue and amputating the toe just distal to the metatarsal head. The wound was then irrigated with copious amounts of irrigation. Hemostasis was achieved. The skin was then closed using 4-0 Prolene in a vertical mattress fashion. The area was washed and dried and sterile bandages were applied. The patient tolerated the procedure well without any complications, taken to recovery room in stable condition. Job ID: [id number] DocumentID: [id number] Dictated Date: 10/29/2022 17:27:49 Chicken Picker Date: 10/30/2022 00:28:00 Dictated By: MISHA PINTO DO
== END 2022-10-29 16:35 ==
LOC: SDC 10:38
PROVIDERS: ATTEND Surgery
DX: M86.9 Osteomyelitis, unspecified (principal); C91.90 Lymphoid leukemia, unspecified not having achieved remission; E66.9 Obesity, unspecified; Z68.32 Body mass index [BMI] 32.0-32.9, adult
CPT/HCPCS: 87081

== ENCOUNTER → 2022-12-23 | Outpatient (CLI) | payer OTHER ==
[~2022-12-23] MED LIST changes: +ACHD5005 PO
--- NOTE | 2022-12-23 09:18 | Diagnostic Imaging Report ---
PROCEDURE: US venous upper extremity left. TECHNIQUE: Multiple realtime grayscale images were obtained of left upper extremity in various projections. Additional spectral analysis and color Doppler duplex images were also obtained. INDICATION: Left arm swelling, leukemia The veins of the left upper extremity have good color filling and compressibility. There is phasic flow and a normal response to augmentation. IMPRESSION: Negative venous Doppler left upper extremity. Dictated by: Dictated on workstation # [id number]
== END ==
LOC: RAD 07:51
PROVIDERS: ATTEND Internal Medicine Hematology & Oncology
DX: C91.10 Chronic lymphocytic leukemia of B-cell type not having achieved remission (principal); C95.90 Leukemia, unspecified not having achieved remission; M79.89 Other specified soft tissue disorders

== ENCOUNTER → 2022-12-30 | Outpatient (CLI) | payer OTHER ==
[~2022-12-30] MED LIST changes: +IOHEXOL 350 MG/ML 100 ML (OMNIPAQUE 350) VIAL IV ONE; +NS 100 ML (IVPB) BAG IV ONE
--- NOTE | 2022-12-30 11:27 | Diagnostic Imaging Report ---
EXAMINATION: CT neck, chest, abdomen, and pelvis with intravenous contrast. TECHNIQUE: Multiple contiguous axial images were obtained through the neck, chest, abdomen, and pelvis after the uneventful administration of intravenous contrast. All CT scans use one or more of the following dose optimizing techniques: automated exposure control, MA and/or KvP adjustment based on patient size and exam type or iterative reconstruction. HISTORY: Leukemia. COMPARISON: None available. FINDINGS: NECK CT: Scattered subcentimeter lymph nodes are seen in the neck. None are pathologically enlarged or abnormally enhancing. The muscles of the neck are normal. Vessels of the neck demonstrate normal course and caliber. Fascial planes are preserved and the deep spaces of the neck are normal. The visualized airway is widely patent. The base of the skull and the temporal bones are normal. Limited views of the brain including the cerebellum and brainstem are normal. The limited view of the [place] is unremarkable. The visualized portions of the orbits are normal. There has been cervical spine fusion. No suspicious osseus lesions. CHEST CT: There is no edema or pneumonia. No pleural effusion. No pneumothorax. No suspicious nodules. There is no axillary or supraclavicular lymphadenopathy. There is no mediastinal lymphadenopathy. Heart size is normal. There are mild coronary artery calcifications. No pericardial effusion. Aorta is normal in caliber. ABDOMEN AND PELVIS CT: The liver is normal without focal lesion. There is no biliary ductal dilation. Gallbladder is absent. Pancreas is normal. Spleen is normal. Adrenal glands are normal. The kidneys are normal. There is no hydronephrosis. Urinary bladder is normal. Bowel is normal in caliber without obstruction or inflammation. No free fluid or air. No abdominal or pelvic lymphadenopathy. Aorta is normal in caliber without aneurysm. There are no suspicious osseus lesions. IMPRESSION: No acute abnormality in the neck, chest, abdomen, or pelvis. No lymphadenopathy. Dictated by: Dictated on workstation # [id number]
== END ==
LOC: RAD 09:54
PROVIDERS: ATTEND Internal Medicine Hematology & Oncology
DX: C91.10 Chronic lymphocytic leukemia of B-cell type not having achieved remission (principal)
CPT/HCPCS: 70491; 71260; 74176

== ENCOUNTER 2023-01-06 13:03 | Outpatient (RCR) | payer OTHER ==
[2022-12-22 13:30] LABS: BASOPHILS # (AUTO) 0.3 10^3/uL (0.0-0.1); BASOPHILS % (AUTO) 0 % (0-10); EOSINOPHILS # (AUTO) 0.3 10^3/uL (0.0-0.3); EOSINOPHILS % (AUTO) 0 % (0-10); HEMATOCRIT 45 % (35-52); HEMOGLOBIN 13.7 g/dL (11.5-16.0); LYMPHOCYTES # (AUTO) 105.7 10^3/uL (1.0-4.0); LYMPHOCYTES % (AUTO) 90 % (12-44); MEAN CORPUSCULAR HEMOGLOBIN 28 pg (25-34); MEAN CORPUSCULAR HGB CONC 31 g/dL (32-36); MEAN CORPUSCULAR VOLUME 92 fL (80-99); MEAN PLATELET VOLUME 11.5 fL (9.0-12.2); MONOCYTES % (AUTO) 3 % (0-12); NEUTROPHILS # (AUTO) 6.9 10^3/uL (1.8-7.8); NEUTROPHILS % (AUTO) 6 % (42-75); PLATELET COUNT 252 10^3/uL (130-400)
[2022-12-22 13:37] LABS: WHITE BLOOD COUNT 117.6 10^3/uL (4.3-11.0)
[2022-12-22 13:50] LABS: ALANINE AMINOTRANSFERASE 16 U/L (0-55); ALBUMIN 4.6 GM/DL (3.2-4.5); ALKALINE PHOSPHATASE 94 U/L (40-136); BILIRUBIN,TOTAL 0.6 MG/DL (0.1-1.0); BUN/CREATININE RATIO 12; CALCIUM 9.4 MG/DL (8.5-10.1); CARBON DIOXIDE 26 MMOL/L (21-32); CHLORIDE 105 MMOL/L (98-107); CREATININE SERUM 1.03 MG/DL (0.60-1.30); GFR ESTIMATED 60; GLUCOSE 111 MG/DL (70-105); POTASSIUM 6.3 MMOL/L (3.6-5.0); SODIUM 138 MMOL/L (135-145); TOTAL PROTEIN 7.5 GM/DL (6.4-8.2)
[~2023-01-06 13:03] MED LIST changes: -IOHEXOL 350 MG/ML 100 ML (OMNIPAQUE 350) VIAL IV ONE; -NS 100 ML (IVPB) BAG IV ONE
== END 2023-01-14 | disposition home or self-care (01) ==
LOC: ONC 13:03
PROVIDERS: ATTEND Internal Medicine Hematology & Oncology
DX: C91.10 Chronic lymphocytic leukemia of B-cell type not having achieved remission (principal); I10 Essential (primary) hypertension; E66.9 Obesity, unspecified; M79.89 Other specified soft tissue disorders
CPT/HCPCS: 80053; 85025; 99214